=== PATIENT | male | born 1975 | race Caucasian/White ===

== ENCOUNTER 2019-04-06 17:59 | Emergency (ER) | payer BC, OTHER ==
[2019-04-06] MEDS ORDERED: Hydromorphone 1 mg/ml Ampule IV ONE (18:13)
[2019-04-06] MEDS ORDERED: BENADRYL 50 MG/ML IV ONE (18:13)
[2019-04-06] MEDS ORDERED: Sodium Chloride 0.9% 1000 ML 1,000 ML IV STA (18:13)
[2019-04-06] MEDS ORDERED: FLAGYL 500 MG IVPB 500 MG/100 ML BAG IV STA (18:14)
[2019-04-06] MEDS ORDERED: BENADRYL 50 MG/ML ONE (18:18)
[2019-04-06] MEDS ORDERED: FLAGYL 500 MG IVPB 500 MG/100 ML BAG IV ONE (18:19)
[2019-04-06] MEDS ORDERED: Hydromorphone 1 mg/ml Ampule ONE (18:19)
[2019-04-06] MEDS ORDERED: Sodium Chloride 0.9% 1000 ML 1,000 ML ONE (18:19)
--- NOTE | 2019-04-06 18:21 | ERPHSYRPT ---
<MICHAEL YI - Last Filed: 04/06/19 21:58> - History of Present Illness Historian: patient Exam Limitations: no limitations Patient Subjective Stated Complaint: pt reports he is having a flare up of his diverticulitis. reports pain to the left lower quadrant. states that his last episode was one month ago. pt denies any bowel or urinary issues. Triage Nursing Assessment: pt is aox3, pupils perrl, afebrile, resps easy and non labored, radial pulses strong and equal, cap refill < 3 seconds, pt abd soft , tender to the left lower quadrant with palpation, bowel sounds present normoactive x 4. pt skin pink warm dry. Timing/Duration: day(s) (1.5) Activities at Onset: none Quality: sharpness, stabbing Abdominal Pain Onset Location: LLQ Pain Radiation: no radiation Severity of Pain-Max: severe Severity of Pain-Current: severe Modifying Factors: Worsens With: movement, palpation Associated Symptoms: No denies symptoms, No back, No chest pain, No diaphoresis , No diarrhea, No fever/chills, No fatigue, No heartburn, No loss of appetite, No nausea, No neck pain, No rash, No shortness of breath, No syncope, No testicular pain, No vomiting, No weakness Previous symptoms: same symptoms as today, no recent treatment Hx Tetanus, Diphtheria Vaccination/Date Given: Yes Hx Influenza Vaccination/Date Given: Yes ([facility] [place]) Hx Pneumococcal Vaccination/Date Given: No Immunizations Up to Date: Yes <SHARON MASCORRO - Last Filed: 04/07/19 07:19> - History of Present Illness Time Seen by Provider: 04/06/19 18:05 Physician History: Patient has a history of diverticulosis with intermittent bouts of flare-ups. His pain began a day and a half ago. (SHARON MASCORRO) Allergies/Adverse Reactions: No Known Drug Allergies Allergy (Verified 04/06/19 18:18) Home Medications: Fenofibrate 160 mg PO HS 08/30/14 [History] Simvastatin [Zocor] 10 mg PO HS 08/30/14 [History] - Review of Systems Constitutional: No Fever, No Chills, No Fatigue Eyes: No Eye Pain, No Vision Changes Ears, Nose, & Throat: No Mouth Pain, No Throat Pain, No Throat Swelling, No Painful Swallowing, No Stridor Respiratory: No Cough, No Dyspnea Cardiac: No Chest Pain, No Palpitations Abdominal/Gastrointestinal: Abdominal Pain, No Nausea, No Vomiting, No Diarrhea , No Hematemesis, No Hematochezia, No Melena Genitourinary Symptoms: No Dysuria, No Frequency, No Hematuria, No Flank Pain Musculoskeletal: No Back Pain, No Neck Pain, No Myalgias Skin: No Pruritis, No Rash Neurological: No Focal Weakness, No Headache, No Paralysis, No Parasthesia, No Tremors Psychological: No Anxiety, No Emotional Lability Endocrine: No Polydipsia, No Excessive Sweating Hematologic/Lymphatic: No Easy Bleeding, No Easy Bruising All Other Systems: Reviewed and Negative <SHARON MASCORRO - Last Filed: 04/07/19 07:19> - Past Medical History Pertinent Past Medical History: Yes Neurological History: No Pertinent History ENT History: No Pertinent History Cardiac History: High Cholesterol Respiratory History: No Pertinent History Endocrine Medical History: No Pertinent History Musculoskeletal History: No Pertinent History GI Medical History: Diverticulitis, GERD History: No Pertinent History Psycho-Social History: No Pertinent History Male Reproductive Disorders: No Pertinent History - Past Surgical History Past Surgical History: Yes Neuro Surgical History: No Pertinent History Cardiac: No Pertinent History Respiratory: No Pertinent History Gastrointestinal: Appendectomy Genitourinary: No Pertinent History Musculoskeletal: Orthopedic Surgery Male Surgical History: No Pertinent History Other Surgical History: arm, - Social History Smoking Status: Never smoker Exposure to second hand smoke: No Drug Use: none Patient Lives Alone: No <SHARON MASCORRO - Last Filed: 04/07/19 07:19> - Physical Exam General Appearance: no apparent distress, alert Eye Exam: PERRL/EOMI, eyes nml inspection, No scleral icterus Ears, Nose, Throat Exam: pharynx normal, moist mucous membranes Neck Exam: normal inspection, non-tender, supple, full range of motion, No meningismus Respiratory Exam: normal breath sounds, lungs clear, airway intact, No chest tenderness, No respiratory distress, No diminished breath sounds, No accessory muscle use, No crackles/rales, No rhonchi, No wheezing Cardiovascular Exam: regular rate/rhythm, normal heart sounds, normal peripheral pulses, capillary refill <2 sec Gastrointestinal/Abdomen Exam: soft, normal bowel sounds, tenderness (LLQ), No distention, No mass, No guarding, No pulsatile mass, No rebound Back Exam: normal inspection, normal range of motion, No CVA tenderness, No vertebral tenderness, No rash Extremity Exam: normal inspection, normal range of motion, pelvis stable, No calf tenderness, No inflammation, No swelling Neurologic Exam: alert, oriented x 3, cooperative, synthetic soil blocks pulper II-XII nml as tested, normal mood/affect, sensation nml, No motor deficits, No sensory deficit, No uncooperative, No motor weakness Skin Exam: normal color, warm, No dry, No rash, No jaundice, No cyanosis SpO2 Interpretation: normal SpO2: 98 O2 Delivery: Room Air <SHARON MASCORRO MATEO - Last Filed: 04/07/19 07:19> - Nursing Vital Signs Nursing Vital Signs: Initial Vital Signs Temperature 98.3 F 04/06/19 18:05 Pulse Rate 83 04/06/19 18:05 Respiratory Rate 20 04/06/19 18:05 Blood Pressure 160/97 04/06/19 18:05 O2 Sat by Pulse Oximetry 98 04/06/19 18:05 Pain Scale Pain Intensity 2 <MICHAEL YI - Last Filed: 04/06/19 21:58> - Course Nursing assessment & vital signs reviewed: Yes <AUDREYRACHELSHARON MATEO - Last Filed: 04/07/19 07:19> Ordered Tests: Active Orders 24 hr Category Date Time Status IV Insertion STAT Care 04/06/19 18:13 Active NPO (ED) STAT Care 04/06/19 18:13 Active ABDOMEN AND PELVIS W/0 CONTRAS [CT] Stat Exams 04/06/19 20:00 Taken AMYLASE Stat Lab 04/06/19 19:35 Completed CBC W DIFF Stat Lab 04/06/19 19:35 Completed CMP Stat Lab 04/06/19 19:35 Completed LIPASE Stat Lab 04/06/19 19:35 Completed Lactic Acid Stat Lab 04/06/19 18:35 Completed UA W/RFX UR CULTURE Stat Lab 04/06/19 18:17 Completed Medication Summary Discontinued Medications Generic Name Dose Route Start Last Admin Trade Name Freq PRN Reason Stop Dose Admin Hydrocodone Bitart/Acetaminophen 2 tab 04/06/19 22:04 04/06/19 22:12 Gill 5/325 Mg PO 04/06/19 22:05 2 tab SENT HOME W/ PATIENT ONE Administration Hydrocodone Bitart/Acetaminophen Confirm 04/06/19 22:10 Gill 5/325 Mg Administered 04/06/19 22:11 Dose 2 tab .ROUTE .STK-MED ONE Diphenhydramine HCl 25 mg 04/06/19 18:13 04/06/19 18:24 Benadryl 50 Mg/Ml IV 04/06/19 18:14 25 mg STAT ONE Administration Diphenhydramine HCl Confirm 04/06/19 18:18 Benadryl 50 Mg/Ml Administered 04/06/19 18:19 Dose 50 mg .ROUTE .STK-MED ONE Hydromorphone HCl 1 mg 04/06/19 18:13 04/06/19 18:24 Hydromorphone 1 Mg/Ml Ampule IV 04/06/19 18:14 1 mg STAT ONE Administration Hydromorphone HCl Confirm 04/06/19 18:19 Hydromorphone 1 Mg/Ml Ampule Administered 04/06/19 18:20 Dose 1 mg .ROUTE .STK-MED ONE Metronidazole 500 mg in 100 mls @ 200 mls/hr 04/06/19 18:14 04/06/19 18:55 Flagyl 500 Mg Ivpb IV 04/06/19 18:43 Infused STAT STA Infusion Sodium Chloride 1,000 mls @ 999 mls/hr 04/06/19 18:13 04/06/19 19:13 Sodium Chloride 0.9% 1000 Ml IV 04/06/19 19:13 Infused .Q1H1M STA Infusion Sodium Chloride Confirm 04/06/19 18:19 Sodium Chloride 0.9% 1000 Ml Administered 04/06/19 18:20 Dose 1,000 mls @ ud .ROUTE .STK-MED ONE Metronidazole Confirm 04/06/19 18:19 Flagyl 500 Mg Ivpb Administered 04/06/19 18:20 Dose 500 mg in 100 mls @ ud IV .STK-MED ONE 02/19/2015: Double Contrast Barium Enema per Radiologist report -Colonic diverticula scattered throughout the colon, worse at the sigmoid colon. no other abnormalities with no filling defects or strictures (VARLAS, PANTELHS MATEO) Lab/Rad Data: Laboratory Result Diagrams 04/06/19 19:35 04/06/19 19:35 Laboratory Results 04/06/19 04/06/19 04/06/19 Range/Units 19:35 19:35 18:35 WBC 12.1 H (4.0-10.5) K/mm3 RBC 4.44 (4.1-5.6) M/mm3 Hgb 13.7 (12.5-18.0) gm/dl Hct 41.6 L (42-50) % MCV 93.7 (78-100) fl MCH 30.9 (26-32) pg MCHC 32.9 (32-36) g/dl RDW 12.4 (11.5-14.0) % Plt Count 224 (150-450) K/mm3 MPV 11.4 H (6-9.5) fl Gran % 67.4 H (36.0-66.0) % Eos # (Auto) 0.05 (0-0.5) Absolute Lymphs (auto) 2.17 (1.0-4.6) Absolute Monos (auto) 1.71 H (0.0-1.3) Lymphocytes % 17.9 L (24.0-44.0) % Monocytes % 14.1 H (0.0-12.0) % Eosinophils % 0.4 (0.00-5.0) % Basophils % 0.2 (0.0-0.4) % Absolute Granulocytes 8.14 H (1.4-6.9) Basophils # 0.02 (0-0.4) Sodium 143 (137-145) mmol/L Potassium 4.2 (3.5-5.1) mmol/L Chloride 108 H (98-107) mmol/L Carbon Dioxide 25 (22-30) mmol/L Anion Gap 14.5 (5-15) MEQ/L BUN 10 (9-20) mg/dL Creatinine 0.94 (0.66-1.25) mg/dL Estimated GFR > 60.0 ML/MIN Glucose 86 (74-106) mg/dL Lactic Acid 1.0 (0.4-2.0) Calcium 9.3 (8.4-10.2) mg/dL Total Bilirubin 0.70 (0.2-1.3) mg/dL AST 32 (17-59) U/L ALT 31 (0-50) U/L Alkaline Phosphatase 41 (38-126) U/L Serum Total Protein 7.1 (6.3-8.2) g/dL Albumin 4.0 (3.5-5.0) g/dL Amylase 55 (30-110) U/L Lipase 72 (23-300) U/L Urine Color (YELLOW) Urine Appearance (CLEAR) Urine pH (5-6) Ur Specific [place] (1.005-1.025) Urine Protein (Negative) Urine Ketones (NEGATIVE) Urine Blood (0-5) Al[place]/ul Urine Nitrite (NEGATIVE) Urine Bilirubin (NEGATIVE) Urine Urobilinogen (0-1) mg/dL Ur Leukocyte Esterase (NEGATIVE) Urine WBC (Auto) (0-5) /HPF Urine RBC (Auto) (0-2) /HPF U Epithel Cells (Auto) (FEW) /HPF Urine Bacteria (Auto) (NEGATIVE) /HPF Urine Culture Reflexed (NO) Urine Glucose (NEGATIVE) mg/dL Slides for Path Review YES 04/06/19 Range/Units 18:17 WBC (4.0-10.5) K/mm3 RBC (4.1-5.6) M/mm3 Hgb (12.5-18.0) gm/dl Hct (42-50) % MCV (78-100) fl MCH (26-32) pg MCHC (32-36) g/dl RDW (11.5-14.0) % Plt Count (150-450) K/mm3 MPV (6-9.5) fl Gran % (36.0-66.0) % Eos # (Auto) (0-0.5) Absolute Lymphs (auto) (1.0-4.6) Absolute Monos (auto) (0.0-1.3) Lymphocytes % (24.0-44.0) % Monocytes % (0.0-12.0) % Eosinophils % (0.00-5.0) % Basophils % (0.0-0.4) % Absolute Granulocytes (1.4-6.9) Basophils # (0-0.4) Sodium (137-145) mmol/L Potassium (3.5-5.1) mmol/L Chloride (98-107) mmol/L Carbon Dioxide (22-30) mmol/L Anion Gap (5-15) MEQ/L BUN (9-20) mg/dL Creatinine (0.66-1.25) mg/dL Estimated GFR ML/MIN Glucose (74-106) mg/dL Lactic Acid (0.4-2.0) Calcium (8.4-10.2) mg/dL Total Bilirubin (0.2-1.3) mg/dL AST (17-59) U/L ALT (0-50) U/L Alkaline Phosphatase (38-126) U/L Serum Total Protein (6.3-8.2) g/dL Albumin (3.5-5.0) g/dL Amylase (30-110) U/L Lipase (23-300) U/L Urine Color YELLOW (YELLOW) Urine Appearance CLEAR (CLEAR) Urine pH 7.0 (5-6) Ur Specific [place] 1.008 (1.005-1.025) Urine Protein NEGATIVE (Negative) Urine Ketones NEGATIVE (NEGATIVE) Urine Blood NEGATIVE (0-5) [place]/ul Urine Nitrite NEGATIVE (NEGATIVE) Urine Bilirubin NEGATIVE (NEGATIVE) Urine Urobilinogen NEGATIVE (0-1) mg/dL Ur Leukocyte Esterase NEGATIVE (NEGATIVE) Urine WBC (Auto) NONE (0-5) /HPF Urine RBC (Auto) NONE (0-2) /HPF U Epithel Cells (Auto) NONE (FEW) /HPF Urine Bacteria (Auto) NONE (NEGATIVE) /HPF Urine Culture Reflexed NO (NO) Urine Glucose NEGATIVE (NEGATIVE) mg/dL Slides for Path Review - Progress Progress: improved Counseled pt/family regarding: lab results, diagnosis, need for follow-up, rad results <MICHAEL YI - Last Filed: 04/06/19 21:58> <SHARON MASCORRO - Last Filed: 04/07/19 07:19> - Progress Progress Note: 04/06/19 19:00 Patient will have his care transferred to Dr Yi, Emergency Department attending. Dr Yi will determine final disposition of the patient after evaluation of imaging studies and re-evaluation of the patient. (SHARON MASCORRO) - Departure Departure Disposition: Home Critical Care Time: No <MICHAEL YI - Last Filed: 04/06/19 21:58> <SHARON MASCORRO - Last Filed: 04/07/19 07:19> - Departure Clinical Impression: Sigmoid diverticulitis, Cholelithiasis, Elevated blood pressure reading without diagnosis of hypertension Condition: Stable Referrals: JOSEPH DAVIS [Primary Care Provider] - Instructions: Diverticulitis (DC) Additional Instructions: clear liquid diet only until pain gone. follow up with primary doctor for further management. Forms: Work/School Release Form Prescriptions: Hydrocodone/APAP 5/325 [Gill 5/325 mg] 1 each PO Q8H PRN PRN #9 tablet MDD 3 PRN Reason: Pain Ciprofloxacin [Cipro 500 MG] 500 mg PO BID #14 tablet Metronidazole 500 mg [Flagyl 500 MG] 500 mg PO TID #21 tablet
[2019-04-06 19:07] LABS: Appearance CLEAR (CLEAR); Bilirubin NEGATIVE (NEGATIVE); Blood NEGATIVE Ery/ul (0-5); Glucose NEGATIVE (NEGATIVE); Ketones NEGATIVE (NEGATIVE); Leukocyte Esterase NEGATIVE (NEGATIVE); Nitrite NEGATIVE (NEGATIVE); Protein,Urine Dip NEGATIVE (Negative); Specific Gravity 1.008 (1.005-1.025); Urobilinogen NEGATIVE mg/dL (0-1)
[2019-04-06 19:46] LABS: Absolute Neutrophil Ct (ANC) 8.14 (1.4-6.9); BASOPHIL % 0.2 % (0.0-0.4); Basophil (Absolute #) 0.02 (0-0.4); Eosinophil % 0.4 % (0.00-5.0); Eosinophil (Absolute #) 0.05 (0-0.5); Hematocrit 41.6 % (42-50); Hemoglobin 13.7 gm/dl (12.5-18.0); Lymphocyte (Absolute #) 2.17 (1.0-4.6); Lymphocytes % 17.9 % (24.0-44.0); Mean Cell Volume 93.7 fl (78-100); Mean Corpuscular Hemoglobin 30.9 pg (26-32); Mean Corpuscular Hgb Concent. 32.9 g/dl (32-36); Mean Platelet Volume 11.4 fl (6-9.5); Monocyte (Absolute #) 1.71 (0.0-1.3); Monocytes % 14.1 % (0.0-12.0); Neutrophil % 67.4 % (36.0-66.0); Platelet Count 224 K/mm3 (150-450); Red Blood Count 4.44 M/mm3 (4.1-5.6); Red Cell Distribution Width 12.4 % (11.5-14.0); White Blood Count 12.1 K/mm3 (4.0-10.5)
[2019-04-06 19:51] LABS: ALKALINE PHOSPHATASE 41 U/L (38-126); AMYLASE 55 U/L (30-110); ANION GAP 14.5 MEQ/L (5-15); BLOOD UREA NITROGEN 10 mg/dL (9-20); CHLORIDE 108 mmol/L (98-107); Calcium 9.3 mg/dL (8.4-10.2); Carbon Dioxide 25 mmol/L (22-30); Creatinine 1 0.94 mg/dL (0.66-1.25); Glucose 86 mg/dL (74-106); LIPASE 72 U/L (23-300); Potassium 4.2 mmol/L (3.5-5.1); SGOT/AST 32 U/L (17-59); SGPT/ALT 31 U/L (0-50); SODIUM 143 mmol/L (137-145); Total Protein 7.1 g/dL (6.3-8.2)
[2019-04-06] MEDS ORDERED: NORCO 5/325 MG PO ONE (22:04)
[2019-04-06] MEDS ORDERED: NORCO 5/325 MG ONE (22:10)
[2019-04-06 22:18] VITALS: BP 128/82; PULSE 88
[2019-04-07 00:05] LABS: Slide Review 1 YES
[2019-04-07 07:19] VITALS: O2SAT 98
--- NOTE | 2019-04-07 08:59 | XRAY ---
Indication: Left lower quadrant pain. Elevated WBC. Multiple contiguous axial images obtained through the abdomen and pelvis without contrast as ordered. Comparison: September 27, 2014. Lung bases demonstrates again minimal bilateral dependent atelectasis. No infiltrate or effusion. Heart is not enlarged. Noncontrasted stomach and bowel loops appear nonobstructed. Again previous cholecystectomy. There remains scattered colonic diverticulosis with recurrence mild/moderate sigmoid diverticulitis. No free fluid/air. Stable diffuse fatty liver and 2 large gallstones. Remaining pancreas, spleen, adrenal glands, kidneys, ureters, bladder, and aorta appear unremarkable for noncontrast exam. Osseous structures intact. No ventral or inguinal hernias. Impression: 1. Again colonic diverticulosis with recurrent sigmoid diverticulitis. No complications. 2. Stable diffuse fatty liver and gallstones. Comment: Preliminary interpretation was made by [facility]. No critical discrepancy. CT DI 20.43
== END 2019-04-06 22:24 | disposition home or self-care (01) ==
LOC: ED 17:59
DX: K57.32 Diverticulitis of large intestine without perforation or abscess without bleeding (principal); K80.20 Calculus of gallbladder without cholecystitis without obstruction; R03.0 Elevated blood-pressure reading, without diagnosis of hypertension
CPT/HCPCS: 36000; 36415; 74176; 80053; 81001; 82150; 83605; 83690; 85025; 96360; 96365; 96374; 96375; 99284; J1170; J1200; A9270-GY

== ENCOUNTER 2019-12-23 18:39 | Emergency (ER) | payer SELFPAY ==
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
[2019-12-23] MEDS ORDERED: MORPHINE SULFATE 4 MG INJ IV ONE (19:41)
[2019-12-23] MEDS ORDERED: Zofran 4 MG/2 ML VIAL IV ONE (19:41)
[2019-12-23] MEDS ORDERED: MORPHINE SULFATE 4 MG INJ ONE (19:44)
[2019-12-23] MEDS ORDERED: Zofran 4 MG/2 ML VIAL ONE (19:44)
[2019-12-23] MEDS ORDERED: Hydromorphone 1 mg/ml Ampule ONE ×2 (20:36→21:48)
[2019-12-23] MEDS ORDERED: Hydromorphone 1 mg/ml Ampule IV ONE ×2 (20:43→21:45)
[2019-12-23 20:57] LABS: Absolute Neutrophil Ct (ANC) 11.98 (1.4-6.9); BASOPHIL % 0.1 % (0.0-0.4); Basophil (Absolute #) 0.02 (0-0.4); Eosinophil % 0.4 % (0.00-5.0); Eosinophil (Absolute #) 0.06 (0-0.5); Hematocrit 44.8 % (42-50); Hemoglobin 14.6 gm/dl (12.5-18.0); Lymphocyte (Absolute #) 1.45 (1.0-4.6); Lymphocytes % 9.8 % (24.0-44.0); Mean Cell Volume 92.6 fl (78-100); Mean Corpuscular Hemoglobin 30.2 pg (26-32); Mean Corpuscular Hgb Concent. 32.6 g/dl (32-36); Mean Platelet Volume 11.6 fl (7.5-11.0); Monocyte (Absolute #) 1.35 (0.0-1.3); Monocytes % 9.1 % (0.0-12.0); Neutrophil % 80.6 % (36.0-66.0); Platelet Count 228 K/mm3 (150-450); Red Blood Count 4.84 M/mm3 (4.1-5.6); Red Cell Distribution Width 12.3 % (11.5-14.0); White Blood Count 14.9 K/mm3 (4.0-10.5)
[2019-12-23 21:08] LABS: ALBUMIN 4.7 g/dL (3.5-5.0); ALKALINE PHOSPHATASE 44 U/L (38-126); AMYLASE 79 U/L (30-110); ANION GAP 11.9 MEQ/L (5-15); BLOOD UREA NITROGEN 15 mg/dL (9-20); CHLORIDE 105 mmol/L (98-107); Calcium 9.6 mg/dL (8.4-10.2); Carbon Dioxide 25 mmol/L (22-30); Glucose 116 mg/dL (74-106); Potassium 3.9 mmol/L (3.5-5.1); SGOT/AST 44 U/L (17-59); SGPT/ALT 45 U/L (0-50); SODIUM 138 mmol/L (137-145); Total Protein 7.7 g/dL (6.3-8.2)
[2019-12-23] MEDS ORDERED: OXYCODONE-ACETAMINOPHEN 10-325 PO STA (22:19)
[2019-12-23] MEDS ORDERED: OXYCODONE-ACETAMINOPHEN 10-325 ONE (22:26)
[2019-12-23 22:40] VITALS: BP 140/89; PULSE 92; O2SAT 94
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
== END 2019-12-23 22:54 | disposition home or self-care (01) ==
LOC: ED 18:39
DX: T14.8XXA Other injury of unspecified body region, initial encounter (principal); S22.20XA Unspecified fracture of sternum, initial encounter for closed fracture; V89.2XXA Person injured in unspecified motor-vehicle accident, traffic, initial encounter; Y93.9 Activity, unspecified; Y92.89 Other specified places as the place of occurrence of the external cause; M54.2 Cervicalgia; R07.9 Chest pain, unspecified; S89.91XA Unspecified injury of right lower leg, initial encounter
CPT/HCPCS: 36000; 36415; 71250; 72125; 73562; 74176; 80053; 82150; 84484; 85025; 93005; 93041; 96374; 96375; 96376; 99285; 99291; J1170; J2270; J2405; A9270-GY

== ENCOUNTER 2020-05-27 13:47 | Emergency (ER) | payer OTHER ==
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
[2020-05-27 15:13] LABS: BASOPHIL % 0.2 % (0.0-0.4); Basophil (Absolute #) 0.01 (0-0.4); Eosinophil % 0.8 % (0.00-5.0); Eosinophil (Absolute #) 0.04 (0-0.5); Hematocrit 46.5 % (42-50); Hemoglobin 15.1 gm/dl (12.5-18.0); Mean Cell Volume 91.5 fl (78-100); Mean Corpuscular Hemoglobin 29.7 pg (26-32); Mean Corpuscular Hgb Concent. 32.5 g/dl (32-36); Mean Platelet Volume 12.3 fl (7.5-11.0); Monocyte (Absolute #) 0.75 (0.0-1.3); Monocytes % 14.4 % (0.0-12.0); Neutrophil % 59.6 % (36.0-66.0); Platelet Count 227 K/mm3 (150-450); Red Blood Count 5.08 M/mm3 (4.1-5.6); Red Cell Distribution Width 12.5 % (11.5-14.0); White Blood Count 5.2 K/mm3 (4.0-10.5)
[2020-05-27 15:14] LABS: Appearance CLEAR (CLEAR); Bilirubin NEGATIVE (NEGATIVE); Blood SMALL Ery/ul (0-5); Glucose NEGATIVE (NEGATIVE); Ketones NEGATIVE (NEGATIVE); Leukocyte Esterase NEGATIVE (NEGATIVE); Nitrite NEGATIVE (NEGATIVE); Protein,Urine Dip NEGATIVE (Negative); Specific Gravity 1.004 (1.005-1.025); Urobilinogen NEGATIVE mg/dL (0-1)
[2020-05-27] MEDS ORDERED: Sodium Chloride 0.9% 1000 ML 1,000 ML IV STA (15:22)
[2020-05-27] MEDS ORDERED: Sodium Chloride 0.9% 1000 ML 1,000 ML ONE (15:23)
--- NOTE | 2020-05-27 15:24 | XRAY ---
Indication: Left abdomen/pelvic pain. Diverticulitis. Multiple contiguous axial images obtained through the abdomen and pelvis using 80 cc Isovue 370 contrast only. Comparison: December 23, 2019. Lung bases demonstrates minimal dependent atelectasis and stable tiny left costophrenic angle calcified granuloma. No infiltrate or effusion. Heart is not enlarged. Noncontrasted stomach and bowel loops remain nonobstructed. Appendectomy reported. Opacity throughout the colon presumed ingested medication/bismuth or barium. There remains scattered descending and sigmoid diverticulosis. Sigmoid colon now demonstrates moderate wall thickening with minimal stranding favoring diverticulitis. No free fluid/air. Stable 2 large gallstones and mild fatty liver. Remaining pancreas, spleen, adrenal glands, kidneys, ureters, bladder, and aorta are normal in CT appearance and attenuation. No pathologic retroperitoneal lymphadenopathy. Osseous structures intact. Impression: 1. Again scattered colonic diverticulosis with new sigmoid diverticulitis. No complications. 2. Stable large gallstones and mild fatty liver.
[2020-05-27 15:37] VITALS: PULSE 78
[2020-05-27 15:58] LABS: ALBUMIN 4.8 g/dL (3.5-5.0); ALKALINE PHOSPHATASE 69 U/L (38-126); AMYLASE 59 U/L (30-110); ANION GAP 15.1 MEQ/L (5-15); BLOOD UREA NITROGEN 9 mg/dL (9-20); CHLORIDE 103 mmol/L (98-107); Calcium 10.5 mg/dL (8.4-10.2); Carbon Dioxide 25 mmol/L (22-30); Creatinine 1 0.85 mg/dL (0.66-1.25); EST GLOMERULAR FILTRATION RATE > 60.0 ML/MIN; Glucose 94 mg/dL (74-106); LIPASE 131 U/L (23-300); Potassium 4.5 mmol/L (3.5-5.1); SGOT/AST 34 U/L (17-59); SGPT/ALT 39 U/L (0-50); SODIUM 139 mmol/L (137-145); Total Protein 8.2 g/dL (6.3-8.2)
[2020-05-27] MEDS ORDERED: TORAdol 30 mg Injection IV ONE (16:03)
[2020-05-27] MEDS ORDERED: FLAGYL 500 MG IVPB 500 MG/100 ML BAG IV STA (16:15)
[2020-05-27] MEDS ORDERED: TORAdol 30 mg Injection ONE (16:21)
[2020-05-27] MEDS ORDERED: FLAGYL 500 MG IVPB 500 MG/100 ML BAG IV ONE (16:21)
[2020-05-27 16:35] VITALS: O2SAT 97
[2020-05-27 16:38] VITALS: BP 145/92
[2020-05-28 05:20] LABS: Slide Review 1 YES
== END 2020-05-27 17:20 | disposition home or self-care (01) ==
LOC: ED 13:47
DX: K57.92 Diverticulitis of intestine, part unspecified, without perforation or abscess without bleeding (principal); R10.9 Unspecified abdominal pain; R10.32 Left lower quadrant pain; Z79.899 Other long term (current) drug therapy
CPT/HCPCS: 36000; 36415; 74177; 80053; 81001; 82150; 83690; 84484; 85025; 96360; 96365; 96374; 99284; J1885

== ENCOUNTER 2025-03-23 08:26 | Emergency (ER) | payer BC ==
[2025-03-23 08:39] VITALS: RESP 18; TEMP 97.8
--- NOTE | 2025-03-23 08:54 | ERPHSYRPT ---
- History of Present Illness Time Seen by Provider: 03/23/25 08:39 Source: patient Physician History: This is an otherwise healthy 49-year-old male who is had 6 days of left periorbital edema with no defined erythema or warmth that was placed on cephalexin 500 mg 3 times daily 5 days ago. He stated he initially had some lumps in his preauricular area and maybe some small lymph nodes in his neck which have resolved, but the edema around the eyes continued. He has no visual acuity changes. No pain with ocular movement. No eye discharge. No trauma. Patient wears the same glasses worn for prolonged period of time without change. His primary care provider nurse practitioner wanted a CAT scan of the orbit and was attempting preauthorization and sent patient to the ER. Allergies/Adverse Reactions: No Known Drug Allergies Allergy (Verified 03/23/25 08:39) Home Medications: Fenofibrate 160 mg PO HS 08/30/14 [History] Simvastatin [Zocor] 10 mg PO HS 08/30/14 [History] Benazepril HCl [Lotensin] 10 mg PO DAILY 03/23/25 [History] Cephalexin Mh 500 mg [Keflex 500 mg] 500 mg PO TID 03/23/25 [History] Omeprazole 20 mg PO BID 03/23/25 [History] Hx Tetanus, Diphtheria Vaccination/Date Given: Yes Hx Influenza Vaccination/Date Given: Yes Hx Pneumococcal Vaccination/Date Given: No - Review of Systems All Other Systems: Reviewed and Negative (As per HPI otherwise negative) - Past Medical History Pertinent Past Medical History: Yes Neurological History: No Pertinent History ENT History: No Pertinent History Cardiac History: High Cholesterol Respiratory History: No Pertinent History Endocrine Medical History: No Pertinent History Musculoskeletal History: No Pertinent History GI Medical History: Diverticulitis, GERD History: No Pertinent History Psycho-Social History: No Pertinent History Male Reproductive Disorders: No Pertinent History - Past Surgical History Past Surgical History: Yes Neuro Surgical History: No Pertinent History Cardiac: No Pertinent History Respiratory: No Pertinent History Gastrointestinal: Appendectomy Genitourinary: No Pertinent History Musculoskeletal: Orthopedic Surgery Male Surgical History: No Pertinent History Other Surgical History: arm, Significant Family History: no pertinent family hx - Social History Smoking Status: Never smoker Exposure to second hand smoke: No Drug Use: none Patient Lives Alone: No - Nursing Vital Signs Nursing Vital Signs: Initial Vital Signs Temperature 97.8 F 03/23/25 08:26 Pulse Rate 70 03/23/25 08:26 Respiratory Rate 18 03/23/25 08:26 Blood Pressure 159/92 03/23/25 08:26 O2 Sat by Pulse Oximetry 99 03/23/25 08:26 Pain Scale Pain Intensity 2 - Physical Exam SpO2: 99 Comments: 03/23/25 08:53 General: Well-nourished well-developed. No apparent distress. HEENT: Normocephalic atraumatic no obvious facial or neck deformity or injury. Left eye with slight infraorbital preseptal edema without erythema or warmth. Superior orbital area has upper lid and palpebral region lichenification approximately 1 cm without redness, warmth or discharge. Extraocular motility is intact and painless. No discharge. Normal conjunctiva. Visual acuity intact. No auricular lymph nodes appreciated. No posterior auricular lymph nodes or mastoid tenderness. Neck: Supple. No deformity or mass noted. No pain with range of motion. No lymphadenopathy. CV: RRR NL Perfusion. No edema Resp: No Respiratory distress or adventitious breath sounds Abd: ND SNT MSK: No deformity or TTP Neuro: Alert and Stendal x4. No gross focal neurologic changes Psych: No SI, HI or grave disability 03/23/25 11:54 Ordered Tests: Active Orders 24 hr Category Date Time Status ORBITS WITH CONTRAST [CT] Stat Exams 03/23/25 08:48 Completed SINUSES WITH CONTRAST [CT] Stat Exams 03/23/25 08:49 Completed CBC W DIFF Stat Lab 03/23/25 09:05 Completed CMP Stat Lab 03/23/25 09:05 Completed Lactic Acid Stat Lab 03/23/25 09:08 Completed Medication Summary Discontinued Medications Generic Name Dose Route Start Last Admin Trade Name Freq PRN Reason Stop Dose Admin Dexamethasone Sodium Phosphate 10 mg 03/23/25 08:45 03/23/25 09:10 Dexamethasone Sod Phosphate 10 Mg/Ml IV 03/23/25 08:46 10 mg STAT ONE Administration Dexamethasone Sodium Phosphate Confirm 03/23/25 09:05 Dexamethasone Sod Phosphate 10 Mg/Ml Administered 03/23/25 09:06 Dose 10 mg .ROUTE .STK-MED ONE Diphenhydramine HCl 25 mg 03/23/25 08:45 03/23/25 09:09 Diphenhydramine Hcl 50 Mg/Ml Vial IV 03/23/25 08:46 25 mg STAT ONE Administration Diphenhydramine HCl Confirm 03/23/25 09:05 Diphenhydramine Hcl 50 Mg/Ml Vial Administered 03/23/25 09:06 Dose 50 mg .ROUTE .STK-MED ONE Sodium Chloride 1,000 mls @ 999 mls/hr 03/23/25 08:45 03/23/25 10:30 Sodium Chloride 0.9% 1000 Ml IV 03/23/25 09:45 Infused .Q1H1M STA Infusion Piperacillin Sod/Tazobactam 100 mls @ 200 mls/hr 03/23/25 08:45 03/23/25 09:45 Sod 3.375 gm/ Sodium Chloride IV 03/23/25 09:14 Infused STAT STA Infusion Sodium Chloride Confirm 03/23/25 09:05 Sodium Chloride 0.9% Administered 03/23/25 09:06 Dose 100 mls @ ud .ROUTE .STK-MED ONE Sodium Chloride Confirm 03/23/25 09:05 Sodium Chloride 0.9% 1000 Ml Administered 03/23/25 09:06 Dose 1,000 mls @ ud .ROUTE .STK-MED ONE Piperacillin Sod/Tazobactam Sod Confirm 03/23/25 09:05 Piperacillin/Tazobactam Sodium 3.375 Gm Vial Administered 03/23/25 09:06 Dose 3.375 gm IV .STK-MED ONE Trimethoprim/Sulfamethoxazole 1 tab 03/23/25 08:46 03/23/25 09:11 Smz/Tmp Ds Tablet 1 Tablet PO 03/23/25 08:47 1 tab STAT STA Administration Trimethoprim/Sulfamethoxazole Confirm 03/23/25 09:05 Smz/Tmp Ds Tablet 1 Tablet Administered 03/23/25 09:06 Dose 1 tab PO .STK-MED ONE Lab/Rad Data: Laboratory Result Diagrams 03/23/25 09:05 03/23/25 09:05 Laboratory Results 03/23/25 03/23/25 03/23/25 Range/Units 09:08 09:05 09:05 WBC 4.7 (4.23-9.07) x10^3/uL RBC 4.92 (4.63-6.08) x10^6/uL Hgb 15.0 (13.7-17.5) g/dL Hct 45.9 (40.1-51.0) % MCV 93.3 H (79.0-92.2) fL MCH 30.5 (25.7-32.2) pg MCHC 32.7 (32.3-36.5) g/dL RDW 11.8 (11.6-14.4) % Plt Count 236 (163-337) x10^3/uL MPV 11.1 (9.4-12.4) fL Gran % 50.6 (34.0-67.9) % Immature Gran % (Auto) 0.2 (0.001-0.429) % Nucleat RBC Rel Count 0.0 (0.00-0.2) % Eos # (Auto) 0.09 (0.04-0.54) x10^3/uL Immature Gran # (Auto) 0.01 (0.001-0.031) x10^3u/L Absolute Lymphs (auto) 1.49 (1.32-3.57) x10^3/uL Absolute Monos (auto) 0.67 (0.30-0.82) x10^3/uL Absolute Nucleated RBC 0.00 (0.00-0.012) x10^3u/L Lymphocytes % 32.0 (21.8-53.1) % Monocytes % 14.4 H (5.3-12.2) % Eosinophils % 1.9 (0.8-7.0) % Basophils % 0.9 (0.2-1.2) % Absolute Granulocytes 2.35 (1.78-5.38) x10^3/uL Basophils # 0.04 (0.01-0.08) x10^3/uL Sodium 141 (135-145) mmol/L Potassium 4.4 (3.5-5.1) mmol/L Chloride 107 (98-107) mmol/L Carbon Dioxide 24 (22-30) mmol/L Anion Gap 13.7 (5-15) MEQ/L BUN 15 (9-20) mg/dL Creatinine 1.02 (0.66-1.25) mg/dL Estimated GFR 89.0 ML/MIN Glucose 108 H (74-106) mg/dL Lactic Acid 1.2 (0.4-2.0) Calcium 9.7 (8.4-10.2) mg/dL Total Bilirubin 0.60 (0.2-1.3) mg/dL AST 42 (17-59) U/L ALT 46 (0-50) U/L Alkaline Phosphatase 46 (38-126) U/L Serum Total Protein 7.6 (6.3-8.2) g/dL Albumin 4.6 (3.5-5.0) g/dL - Progress Progress Note: 03/23/25 11:39 Patient CAT scans with no significant findings as clinically suspected. No significant change with steroid and Benadryl. Patient given IV Zosyn and first dose of coverage for staph and MRSA with Bactrim. He will have his prescription extended for 1 week for Keflex and he will go 4 times daily. I will add 7 pills to make this possible from the 9 he is already use out of his 30. He will also be placed on Bactrim twice daily for 7 days. I have asked him to call his primary care provider to ensure close follow-up. He admits that his condition has improved, does not as fast as predicted. Regardless we have discussed close follow-up and reasons return the emergency department. The patient's condition was discussed with themselves and/or family members in great detail. Precautions are given and need to return or call 911 immediately for any changes or worsening are discussed. Instructions on patient's condition and noting that conditions can change or worsen and that diagnosis are presumptive and can evolve are discussed. All questions were answered. All concerns addressed at this time - Departure Departure Disposition: Home Clinical Impression: Periorbital cellulitis of left eye Condition: Stable Critical Care Time: No Referrals: JOSEPH DAVIS [Primary Care Provider, [facility]] - Follow up/PCP as directed Instructions: Cellulitis around the eye Additional Instructions: Call Your primary care provider today to ensure close follow-up within the next 24 hours. You have been evaluated for an emergency medical condition. At this time, given the current history and events presented, the examination conducted and any possible testing you may have had, you have been given a presumptive diagnosis based on the current information is obtained. Your discharge diagnosis is presumptive and not necessarily definitive. Medical conditions present in various stages very often without all the symptoms or findings described in medical literature. Other symptoms, concerns or conditions may arise and your diagnoses may evolve or change and/or your condition could potentially worsen after the time of disposition or discharge. You have been given a presumptive diagnosis and your condition appears to be stable, but your medical issues can change or worsen. If there is worsening of your condition including difficulty breathing, swallowing, speaking, chest pain or pressure, intractable vomiting, worsening or changing mental status, numbness, tingling or weakness of your body or arms or legs, thoughts or plans of harming yourself or others, or any other concerns, call 911 and/or return immediately to the closest emergency department. It is important you follow-up with your doctor on the next business day. Call your doctor, or the referral provided if you do not have a doctor, when they open to schedule a follow-up appointment in the next 1 or latest 2 days. Please refer to the attached sheet. If you do not have primary care doctor, you can call the [facility] referral line at [phone]. Return immediately if your symptoms worsen or if you are unable to obtain further care. My team and I thank you for choosing the [facility] Emergency Department emergency healthcare needs. We wish you a speedy recovery. Very respectfully, Dr. Canelo Smart M.D. [place] [employer] Board-certified Emergency Physician Prescriptions: Sulfamethoxazole/Trimethoprim [Bactrim Ds Tablet] 1 each PO BID 7 Days tablet cephALEXin [Cephalexin] 500 mg PO QID #7 tablet
[2025-03-23] MEDS ORDERED: PIPERACILLIN/TAZOBACTAM IV ONE (09:05)
[2025-03-23] MEDS ORDERED: BACTRIM DS TABLET PO ONE (09:05)
[2025-03-23] MEDS ORDERED: BENADRYL 50 MG/ML ONE (09:05)
[2025-03-23] MEDS ORDERED: DECADRON 10MG INJ. ONE (09:05)
[2025-03-23 09:09] LABS: BASOPHIL % 0.9 % (0.2-1.2); Basophil (Absolute #) 0.04 x10^3/uL (0.01-0.08); Eosinophil (Absolute #) 0.09 x10^3/uL (0.04-0.54); Hematocrit 45.9 % (40.1-51.0); Hemoglobin 15.0 g/dL (13.7-17.5); IMMATURE GRAN # 0.01 x10^3u/L (0.001-0.031); IMMATURE GRAN % 0.2 % (0.001-0.429); Lymphocyte (Absolute #) 1.49 x10^3/uL (1.32-3.57); Mean Corpuscular Hemoglobin 30.5 pg (25.7-32.2); Mean Corpuscular Hgb Concent. 32.7 g/dL (32.3-36.5); Monocyte (Absolute #) 0.67 x10^3/uL (0.30-0.82); NUCLEATED RBC # 0.00 x10^3u/L (0.00-0.012); NUCLEATED RBC % 0.0 % (0.00-0.2); Platelet Count 236 x10^3/uL (163-337); Red Blood Count 4.92 x10^6/uL (4.63-6.08); White Blood Count 4.7 x10^3/uL (4.23-9.07)
[2025-03-23] MEDS: BENADRYL 50 MG/ML IV ONE (09:09)
[2025-03-23] MEDS: DECADRON 10MG INJ. IV ONE (09:10)
[2025-03-23] MEDS: BACTRIM DS TABLET PO STA (09:11)
[2025-03-23 09:23] LABS: Calcium 9.7 mg/dL (8.4-10.2); Carbon Dioxide 24.0 mmol/L (22-30); Creatinine 1 1.02 mg/dL (0.66-1.25); EST GLOMERULAR FILTRATION RATE 89.0 ML/MIN; Glucose 108.0 mg/dL (74-106); Potassium 4.4 mmol/L (3.5-5.1); SGOT/AST 42.0 U/L (17-59); SGPT/ALT 46.0 U/L (0-50); Total Protein 7.6 g/dL (6.3-8.2)
--- NOTE | 2025-03-23 10:51 | XRAY ---
Indication: Sinus abscess. Multiple contiguous axial images obtained through the paranasal sinuses using 80 cc Isovue 370 contrast as ordered. Sagittal and coronal reformatted images obtained. Comparison: None Multiple bilateral dental amalgams produces beam artifact. Floor right maxillary sinus demonstrates very minimal mucosal thickening. Remaining paranasal sinuses, ostiomeatal units, and nasal passages are pneumatized and clear. Mild nasal septal deviation to the left. No acute fracture, suspicious bony lesions, or osseous destructive process. Visualized contrasted soft tissues including base of brain are unremarkable. Impression: Very minimal right maxillary sinus disease. Nasal septal deviation. Remaining CT sinuses with contrast exam is negative.
--- NOTE | 2025-03-23 10:57 | XRAY ---
Indication: Left eye cellulitis. Multiple contiguous axial images obtained through the orbits using 80 cc Isovue 370 contrast as ordered. Sagittal and coronal reformatted images obtained. Comparison: None Mild left periorbital soft tissue swelling/induration favoring clinically reported cellulitis.. No focal solid/cystic soft tissue mass, abnormal fluid collection, or soft tissue emphysema. Orbits including extraocular muscles and retro-orbital structures are bilaterally symmetric. Visualized paranasal sinuses are clear. Incidental mild nasal septal deviation to the left. No acute fracture, suspicious bony lesions, or osseous destructive process. Visualized contrasted soft tissues including base of brain are unremarkable. Impression: Left periorbital soft tissue swelling favoring clinically reported cellulitis. Remaining CT orbits with contrast exam is negative.
[2025-03-23 12:05] VITALS: BP 136/87; PULSE 76; O2SAT 98
== END 2025-03-23 12:06 | disposition home or self-care (01) ==
LOC: ED 08:26
DX: L03.213 Periorbital cellulitis (principal); H05.222 Edema of left orbit; Z79.899 Other long term (current) drug therapy